=== PATIENT | female | born 1980 | race Caucasian/White ===

== ENCOUNTER 2018-08-22 17:43 | Emergency (ER) | payer OTHER ==
[~2018-08-22] VITALS: Ht 165.1 cm; Wt 52.4 kg
[2018-08-22] MEDS ORDERED: ASPIRIN 81 MG TABLET CHEW PO ONE (18:00)
[2018-08-22 18:13] LABS: BASOPHILS % (AUTO) 0 % (0-1); EOSINOPHILS # (AUTO) 0.01 x10^3/uL (0-0.4); EOSINOPHILS % (AUTO) 0 % (1-7); LYMPHOCYTES # (AUTO) 1.64 x10^3/uL (1-3.4); LYMPHOCYTES % (AUTO) 10 % (22-44); MD NO; MEAN CORPUSCULAR HGB CONC 33.7 g/dL (32.4-35.8); MEAN CORPUSCULAR VOLUME 94.8 fL (80-100); MEAN PLATELET VOLUME 9.8 fL (7.4-10.4); MONOCYTES # (AUTO) 0.32 x10^3/uL (0.2-0.8); MONOCYTES % (AUTO) 2 % (2-9); NEUTROPHILS # (AUTO) 14.18 x10^3/uL (1.8-6.8); NEUTROPHILS % (AUTO) 88 % (42-75); PLATELET COUNT 193 x10^3/uL (130-400); RED BLOOD COUNT 4.98 x10^6/uL (3.82-5.3); RED CELL DISTRIBUTION WIDTH 13.8 % (9.6-15.2)
[2018-08-22 18:27] LABS: ALANINE AMINOTRANSFERASE 26 U/L (12-78); ALBUMIN 3.8 g/dL (3.4-5.0); ANION GAP 8 mmol/L (5-15); CALCIUM 8.6 mg/dL (8.5-10.1); CHLORIDE 100 mmol/L (98-107); CREATININE 0.97 mg/dL (0.55-1.02)
[2018-08-22 18:32] LABS: ALKALINE PHOSPHATASE 44 U/L (45-117); BILIRUBIN,TOTAL 0.5 mg/dL (0.2-1.0); TOTAL PROTEIN 7.3 g/dL (6.4-8.2); TROPONIN I < 0.015 ng/mL (0.000-0.045)
[2018-08-22] MEDS ORDERED: ASPIRIN 81 MG TABLET CHEW ONE (19:05)
[2018-08-22 19:09] VITALS: BP 117/63
== END 2018-08-22 19:56 | disposition home or self-care (01) ==
LOC: ED 19:40
DX: R07.2 Precordial pain (principal); R19.7 Diarrhea, unspecified; R20.0 Anesthesia of skin
CPT/HCPCS: 36415; 71045; 80053; 84484; 84703; 85025; 93005; 99285

== ENCOUNTER 2020-11-14 05:32 | Day surgery (SDC) | payer BC, OTHER ==
[~2020-11-14] VITALS: Ht 162.6 cm; Wt 52.0 kg
[2020-11-14] MEDS ORDERED: CHLORHEXIDINE 15 ML UDC MM ONE ×2 (06:30→07:30)
[2020-11-14 06:36] LABS: HCG UR SG 1.017 (1.003-1.030)
[2020-11-14 06:50] VITALS: BP 115/74
[2020-11-14] MEDS ORDERED: SILVER NITRATE STICK TP ONE (06:52)
[2020-11-14] MEDS ORDERED: BUPIVACAINE/PF 0.25% ONE (06:52)
[2020-11-14] MEDS ORDERED: EPINEPHRINE 1 MG/ML, 1ML ONE (06:52)
[2020-11-14] MEDS ORDERED: MIDAZOLAM 1 MG/ML, 2ML ONE (07:17)
[2020-11-14] MEDS ORDERED: FENTANYL PF 100 MCG/2ML ONE (07:17)
[2020-11-14] MEDS ORDERED: LACTATED RINGERS 1,000 ML IV SCH (07:30)
[2020-11-14] MEDS ORDERED: ONDANSETRON 2MG/ML, 2ML ONE (07:31)
[2020-11-14] MEDS ORDERED: DEXAMETHASONE 4 MG/ML, 1ML ONE (07:31)
[2020-11-14] MEDS ORDERED: PROPOFOL 10 MG/ML, 20ML ONE (07:31)
[2020-11-14] MEDS ORDERED: ROCURONIUM 10 MG/ML,10ML ONE (07:31)
[2020-11-14] MEDS ORDERED: SUCCINYLCHOLINE 20 MG/ML, 10ML ONE (07:31)
[2020-11-14] MEDS ORDERED: DIAZEPAM 5 MG/ML, 2ML IVPush PRN (08:00)
[2020-11-14] MEDS ORDERED: ACETAMINOPHEN 325 MG TABLET PO PRN (08:00)
[2020-11-14] MEDS ORDERED: ALBUTEROL SULFATE 2.5 MG/3 ML NPPB PRN (08:00)
[2020-11-14] MEDS ORDERED: hydrALAzine 20 MG/ML, 1ML IV PRN (08:00)
[2020-11-14] MEDS ORDERED: MEPERIDINE/PF 25MG/0.5ML IVPush PRN (08:00)
[2020-11-14] MEDS ORDERED: OXYcodone 5 MG/5 ML ORAL.SOL UDC PO PRN (08:00)
[2020-11-14] MEDS ORDERED: FENTANYL PF 100 MCG/2ML IV PRN (08:00)
[2020-11-14] MEDS ORDERED: PROMETHAZINE 25 MG/ML, 1ML IV PRN (08:00)
[2020-11-14] MEDS ORDERED: HYDROmorphone 2 MG/ML, 1ML IVPush PRN (08:00)
[2020-11-14] MEDS ORDERED: KETOROLAC 30 MG/1 ML IV PRN (08:00)
[2020-11-14] MEDS ORDERED: LABETALOL 5MG/ML, 20ML IV PRN (08:00)
== END 2020-11-14 09:40 | disposition home or self-care (01) ==
LOC: OUT 05:32
PROVIDERS: ATTEND Obstetrics & Gynecology
DX: T83.89XA Other specified complication of genitourinary prosthetic devices, implants and grafts, initial encounter (principal); F41.9 Anxiety disorder, unspecified; Y83.8 Other surgical procedures as the cause of abnormal reaction of the patient, or of later complication, without mention of misadventure at the time of the procedure; Z98.890 Other specified postprocedural states; Z72.89 Other problems related to lifestyle; Z79.899 Other long term (current) drug therapy; Z20.828 Contact with and (suspected) exposure to other viral communicable diseases
CPT/HCPCS: 58562; 81025; 88300; J0171; J0330; J1100; J2250; J2405; J2704; J3010; U0003